=== PATIENT | male | born 1995 | race American Indian/Alaskan Native ===

== ENCOUNTER 2020-10-04 12:52 | Emergency (ER) | payer BC ==
--- NOTE | 2020-10-04 13:39 | Emergency Department Report ---
HPI - General Chief Complaint: Shoulder Injury Time Seen by Provider: 10/04/20 13:15 - HPI HPI: This is a 25-year-old -[place] male presents to the emergency department via EMS with complaint of right shoulder pain that began after playing basketb all prior to presentation. The patient tried to swipe at the ball and thinks that he may have dislocated her shoulder. He denies any history of previous shoulder dislocations. He is right-hand dominant. Pain is currently 10 out of 10 in intensity but still worsens with any type of movement of the arm. There is decreased range of motion secondary to the pain. He is right-hand dominant. ED Past Medical Hx - Past Medical History Previous Medical History?: No - Surgical History Past Surgical History?: No - Social History Smoking Status: Never Smoker Substance Use Type: Marijuana ED Review of Systems ROS: Stated complaint: POSS DISLOCATED SHOULDER/PAIN Other details as noted in HPI Comment: All other systems reviewed and negative Constitutional: denies: chills, fever Respiratory: denies: shortness of breath Cardiovascular: denies: chest pain Gastrointestinal: denies: abdominal pain Musculoskeletal: arthralgia. denies: joint swelling Neurological: denies: numbness, paresthesias Physical Exam - Physical Exam Physical Exam: GENERAL: The patient is well-developed well-nourished. HENT: Normocephalic. Atraumatic. Patient has moist mucous membranes. EYES: Extraocular motions are intact. NECK: Supple. Trachea is midline. CHEST/LUNGS: Clear to auscultation. There is no respiratory distress noted. HEART/CARDIOVASCULAR: Regular. There is no tachycardia. There is no murmur. ABDOMEN: Abdomen is soft, nontender. Patient has normal bowel sounds. SKIN: Skin is warm and dry. NEURO: The patient is awake, alert, and oriented. The patient is cooperative. The patient has no focal neurologic deficits. Normal speech. MUSCULOSKELETAL: Tenderness to palpation to the right shoulder. Decreased range of motion of the right upper extremity secondary to shoulder pain. Radial pulse +2/4 and capillary refill less than 2 seconds to the affected right upper extremity. - Moderate Sedation Indications: fracture/dislocation redu ASA Class: I Mallampati Airway Score: 1 Preparation: school lunch monitor applied, pulse oximeter, capnometry used, supplemental O2 applied, suction/airway equipment at bedside, IV secured Ketamine: IV Ketamine Dose: 30 IV Propofol Dose (mgs): 30 Complications: none Patient Tolerated Procedure: well - Orthopedic Joint Reduction Joint #1 Consent Obtained: written consent Time Out Performed: Yes Side: right Joint Reduction Location: shoulder Analgesia: moderate sedation Shoulder Technique Used (if applicable): traction/counter-traction, external rotation Post-Reduction Neuro Exam: intact Post-Reduction Vascular Exam: intact Post Reduction X-Ray Obtained: Yes Post Reduction X-Ray Results: reduced Splint Applied: Yes Patient Tolerated Procedure: well ED Medical Decision Making - Radiology Data Radiology results: image reviewed interpreted by me: Right shoulder x-ray shows an inferior anterior dislocation. Post reduction x-ray of the right shoulder shows appropriate reduction of the humeral head within the glenohumeral joint. - Medical Decision Making This patient presents with a right shoulder dislocation that occurred while playing basketball. He is neurovascularly intact. X-ray confirms an anterior inferior dislocation. The patient was given moderate sedation and then I successfully reduced the dislocation. The successful reduction was also confirmed with an x-ray. The patient remained neurovascularly intact after the procedure and was placed in a shoulder immobilizer. Patient was monitored until he was back at his normal baseline mentation after the moderate sedation. Vital signs have been reassuring throughout his ED course including being afebrile. The patient will remain in the shoulder immobilizer until follow-up with orthopedist and was given multiple outpatient referrals. Critical Care Time: No Critical care attestation.: If time is entered above; I have spent that time in minutes in the direct care of this critically ill patient, excluding procedure time. ED Disposition Clinical Impression: Dislocation of right shoulder joint Qualifiers: Encounter type: initial encounter Qualified Code(s): S43.004A - Unspecified dislocation of right shoulder joint, initial encounter Disposition: DC- TO HOME OR SELFCARE Is pt being admited?: No Condition: Stable Instructions: Shoulder Dislocation, How to Use a Shoulder Immobilizer Additional Instructions: Please follow-up with an orthopedist in the next few days. I have given you a referral for 2 different local orthopedic groups, Dr. N[facility] and [facility]. Remain in the shoulder immobilizer until follow-up with the orthopedist. Return to the emergency department with any worsening of your symptoms, new or concerning symptoms not addressed during this current emergency department visit, or with any acute distress. Referrals: PRIMARY CARE, [Primary Care Provider] - 2-3 Days LIS NAVA MD [Staff Physician] - 2-3 Days [facility] [Provider Group] - 2-3 Days Time of Disposition: 16:37
[2020-10-04] MEDS ORDERED: MORPHINE 4 MG/1 ML INJ IV ONE (13:50)
--- NOTE | 2020-10-04 14:37 | XRay Report ---
RIGHT SHOULDER 3 VIEWS INDICATION / CLINICAL INFORMATION: pain. COMPARISON: None available. FINDINGS: Anterior inferior dislocation of the humeral head Signer Name: Ramez Kong MD FACR Signed: 10/04/2020 2:36 PM Workstation Name: [id number]
[2020-10-04] MEDS ORDERED: KETAMINE 500 MG/5 ML VIAL MDV IV ONE (14:41)
[2020-10-04] MEDS ORDERED: SODIUM CHLORIDE 0.9% 1000 ML 1,000 ML IV ONE (14:41)
[2020-10-04] MEDS ORDERED: propofoL 200 MG/20 ML VIAL IV ONE (14:41)
--- NOTE | 2020-10-04 15:52 | XRay Report ---
RIGHT SHOULDER 1 VIEW(S), 3:15 PM INDICATION / CLINICAL INFORMATION: post reduction XR COMPARISON: 1:47 PM FINDINGS: BONES / JOINT(S): Interval successful reduction of previous anterior shoulder dislocation. Probable H ill-Sachs impaction deformity of the posterolateral humeral head. No significant arthritis. SOFT TISSUES: Mild soft tissue swelling of the shoulder. ADDITIONAL FINDINGS: None. Signer Name: Christen Becerril MD Signed: 10/04/2020 3:51 PM Workstation Name: [id number]
[2020-10-04 16:00] VITALS: BP 137/76
[2020-10-04] MEDS ORDERED: ONDANSETRON 4 MG/2 ML INJ ONE (16:03)
[2020-10-04] MEDS ORDERED: ONDANSETRON 4 MG/2 ML INJ IV ONE (16:03)
== END 2020-10-04 17:53 | disposition home or self-care (01) ==
LOC: ED 12:52
DX: S43.004A Unspecified dislocation of right shoulder joint, initial encounter (principal); F12.10 Cannabis abuse, uncomplicated; Z91.013 Allergy to seafood; X50.9XXA Other and unspecified overexertion or strenuous movements or postures, initial encounter; Y93.67 Activity, basketball; Y92.89 Other specified places as the place of occurrence of the external cause; Y99.8 Other external cause status
CPT/HCPCS: 23650; 73020; 73030; 96361; 96374; 96375; 99285; J2270; J2405; J2704; J7030